=== PATIENT | male | born 1975 | race American Indian/Alaskan Native ===

== ENCOUNTER 2017-07-10 13:10 | Emergency (ER) | payer OTHER ==
[2017-07-10 13:26] VITALS: O2SAT 98
[2017-07-10] MEDS ORDERED: Sodium Chloride 0.9% 1,000 ML IV ONE (13:46)
[2017-07-10] MEDS ORDERED: Alum-Mag Hydrox-Simethicone Susp (30 mL) PO STA (13:48)
--- NOTE | 2017-07-10 13:52 | C.PDOC ---
History Of Present Illness 41 y/o male presents to ED with complaints of abdominal pain with associated vomiting since yesterday. Patient also reports heart burn and denies fever, chills, diarrhea, urinary symptoms, back pain or any other complaints at this time. Time Seen by Provider: 07/10/17 13:33 Chief Complaint (Nursing): Abdominal Pain History Per: Patient History/Exam Limitations: no limitations Onset/Duration Of Symptoms: Days Current Symptoms Are (Timing): Still Present Location Of Pain/Discomfort: Diffuse Past Medical History Reviewed: Historical Data, Nursing Documentation, Vital Signs Vital Signs: Last Vital Signs Temp 98.6 F 07/10/17 15:13 Pulse 80 07/10/17 15:13 Resp 18 07/10/17 15:13 BP 95/58 L 07/10/17 15:13 Pulse Ox 98 07/10/17 15:13 - Medical History PMH: Asthma, Back Problems, Bronchitis Surgical History: No Surg Hx - [facility] Procedures APPLICATION OF SPLINT (12/04/14) TETANUS TOXOID ADMINIST (01/24/14) Family History: States: No Known Family Hx - Social History Hx Tobacco Use: Yes Hx Alcohol Use: No Hx Substance Use: Yes - Immunization History Hx Tetanus Toxoid Vaccination: Yes (01/24/14) Hx Influenza Vaccination: No Hx Pneumococcal Vaccination: No Review Of Systems Except As Marked, All Systems Reviewed And Found Negative. Constitutional: Negative for: Fever, Chills Gastrointestinal: Positive for: Vomiting, Abdominal Pain. Negative for: Nausea , Diarrhea, Constipation Genitourinary: Negative for: Dysuria, Frequency, Hematuria Musculoskeletal: Negative for: Back Pain Skin: Negative for: Rash Physical Exam - Physical Exam Appears: Well, Non-toxic, No Acute Distress Skin: Normal Color, Warm, Dry, No Rash Head: Atraumatic, Normacephalic Eye(s): bilateral: Normal Inspection Oral Mucosa: Moist Neck: Normal ROM, Supple Chest: Symmetrical Cardiovascular: Rhythm Regular, No Murmur Respiratory: Normal Breath Sounds, No Rales, No Rhonchi, No Wheezing Gastrointestinal/Abdominal: Soft, No Tenderness, No Guarding, No Rebound Extremity: Normal ROM, No Pedal Edema, Capillary Refill (<2 seconds) Neurological/Psych: Oriented x3 ED Course And Treatment - Laboratory Results Result Diagrams: 07/10/17 13:50 07/10/17 14:15 Lab Interpretation: Normal ECG: Interpreted By Me ECG Rhythm: Sinus Rhythm ECG Interpretation: No Acute Changes Rate From EC O2 Sat by Pulse Oximetry: 98 (RA) Pulse Ox Interpretation: Normal Progress Note: Treated with IVF NSS, zofran and maalox. On re-evaluation abdomen soft non-tender Reassessment Condition: Improved Medical Decision Making Medical Decision Making: Plan: * labs * Pepcid * zofran * IV fluids * * On re-evaluation abdomen soft * feeling better * Patient requesting a rx for pain medication for chronic back pain * * Patient was instructed to take OTC for pain * * Ambulating with steady gait Disposition Counseled Patient/Family Regarding: Studies Performed, Diagnosis, Need For Followup, Rx Given - Disposition Referrals: Omaira Ramírez MD [Staff Provider] - Disposition: HOME/ ROUTINE Disposition Time: 15:00 Condition: STABLE Additional Instructions: Follow up with PMD for further evaluation Prescriptions: Famotidine [Pepcid AC] 20 mg PO BID #10 tab Famotidine/Ca Carb/Mag Hydrox [Pepcid Complete Tablet Chew] 1 each PO BID #10 tab.chew Instructions: Gastritis (ED) Forms: [employer] (Cook Islander) - POA Present On Arrival: None - Clinical Impression Clinical Impression: Vomiting, Gastritis - PA / SPECIAL EDUCATION BUS DRIVER / Resident Statement MD/DO has reviewed & agrees with the documentation as recorded. - Scribe Statement The provider has reviewed the documentation as recorded by the Scribtisha Tamayo All medical record entries made by the Janaeibtisha were at my direction and personally dictated by me. I have reviewed the chart and agree that the record accurately reflects my personal performance of the history, physical exam, medical decision making, and the department course for this patient. I have also personally directed, reviewed, and agree with the discharge instructions and disposition.
[2017-07-10] MEDS ORDERED: Sodium Chloride 0.9% 250 ML IV ONE (13:56)
[2017-07-10 13:57] LABS: BASO # 0.1 K/uL (0.0-0.2); BASO % 1.1 % (0.0-2.0); EOS # 0.3 K/uL (0.0-0.7); EOS % 4.9 % (0.0-4.0); HEMATOCRIT 42.5 % (35.0-51.0); LYMPH # 2.3 K/uL (1.0-4.3); LYMPH % 37.2 % (20.0-40.0); MEAN CELL VOLUME 94.9 fL (80.0-94.0); MEAN CORPUSCULAR HEMOGLOBIN 32.6 pg (27.0-31.0); MEAN CORPUSCULAR HGB CONC 34.4 g/dL (33.0-37.0); MEAN PLATELET VOLUME 8.4 fL (7.2-11.7); MONO # 0.5 K/uL (0.0-0.8); MONO % 8.3 % (0.0-10.0); NRBC % 0.1 % (0.0-2.0); RED CELL DISTRIBUTION WIDTH 14.4 % (11.5-14.5); WHITE BLOOD COUNT 6.3 K/uL (4.8-10.8)
[2017-07-10] MEDS ORDERED: Alum-Mag Hydrox-Simethicone Susp (30 mL) ONE (14:03)
[2017-07-10 14:16] LABS: RBC URINE < 1 /hpf (0-3); URINE BILIRUBIN NEGATIVE (NEGATIVE); URINE BLOOD NEGATIVE (NEGATIVE); URINE COLOR Yellow (YELLOW); URINE GLUCOSE (UA) NORMAL (Normal); URINE KETONE NEGATIVE (NEGATIVE); URINE LEUKOCYTE ESTERASE NEG Leu/uL (Negative); URINE PROTEIN NEGATIVE (NEGATIVE); URINE UROBILINOGEN NORMAL mg/dL (0.2-1.0); WBC URINE < 1 /hpf (0-5)
[2017-07-10 14:35] LABS: CHLORIDE 110 mmol/L (98-107); SODIUM 142 mmol/L (132-148)
[2017-07-10 14:37] LABS: GFR AFRICAN-AMERICAN > 60
[2017-07-10 14:38] LABS: ALB/GLOB RATIO 1.2 (1.0-2.1); ALKALINE PHOSPHATASE 64 U/L (38-126); ALT/SGPT 40 U/L (21-72); AST/SGOT 21 U/L (17-59); BILIRUBIN,TOTAL 0.5 mg/dL (0.2-1.3); BLOOD UREA NITROGEN 11 mg/dL (9-20); CALCIUM 8.7 mg/dl (8.6-10.4); CARBON DIOXIDE 24 mmol/L (22-30); GLUCOSE,RANDOM 95 mg/dL (75-110); TOTAL PROTEIN 6.7 g/dL (6.3-8.3)
[2017-07-10 15:14] VITALS: BP 95/58; PULSE 80; RESP 18; TEMP 98.6
== END 2017-07-10 15:26 | disposition home or self-care (01) ==
LOC: C.ER 13:10
DX: K29.70 Gastritis, unspecified, without bleeding (principal); R11.10 Vomiting, unspecified
CPT/HCPCS: 80053; 81001; 83690; 85025; 96361; 96374; 96375; 99285; J2405; J7040

== ENCOUNTER 2017-07-25 20:08 | Emergency (ER) | payer SELFPAY ==
[2017-07-25 21:07] LABS: BASO # 0.1 K/uL (0.0-0.2); BASO % 0.9 % (0.0-2.0); EOS # 0.2 K/uL (0.0-0.7); EOS % 2.4 % (0.0-4.0); HEMATOCRIT 41.4 % (35.0-51.0); LYMPH # 3.1 K/uL (1.0-4.3); LYMPH % 34.7 % (20.0-40.0); MEAN CELL VOLUME 93.8 fL (80.0-94.0); MEAN CORPUSCULAR HEMOGLOBIN 32.8 pg (27.0-31.0); MEAN PLATELET VOLUME 8.7 fL (7.2-11.7); MONO # 0.8 K/uL (0.0-0.8); MONO % 8.4 % (0.0-10.0); NRBC % 0.1 % (0.0-2.0); RED CELL DISTRIBUTION WIDTH 14.2 % (11.5-14.5)
[2017-07-25 21:14] LABS: CHLORIDE 101 mmol/L (98-107); POTASSIUM 3.7 mmol/L (3.6-5.2); SODIUM 135 mmol/L (132-148)
[2017-07-25 21:16] LABS: BILIRUBIN,TOTAL 0.6 mg/dL (0.2-1.3); GFR AFRICAN-AMERICAN > 60
[2017-07-25 21:17] LABS: ALB/GLOB RATIO 1.1 (1.0-2.1); ALKALINE PHOSPHATASE 68 U/L (38-126); ALT/SGPT 40 U/L (21-72); AST/SGOT 22 U/L (17-59); BLOOD UREA NITROGEN 15 mg/dL (9-20); CALCIUM 9.1 mg/dl (8.6-10.4); CARBON DIOXIDE 23 mmol/L (22-30); GLUCOSE,RANDOM 81 mg/dL (75-110); TOTAL PROTEIN 7.8 g/dL (6.3-8.3)
[2017-07-25 22:33] VITALS: BP 127/70; PULSE 69; RESP 20; TEMP 98; O2SAT 100
--- NOTE | 2017-07-26 01:05 | C.PDOC ---
History Of Present Illness 41 year old male who presents to the ER with a complaint of substernal, nonradiating chest pain since this afternoon. Patient states he had a cardiac work up done last week but results are not known to patient. Denies SOB, cough, abdominal pain, or diaphoresis. Time Seen by Provider: 07/25/17 20:53 Chief Complaint (Nursing): Chest Pain History Per: Patient History/Exam Limitations: no limitations Onset/Duration Of Symptoms: Hrs Current Symptoms Are (Timing): Still Present Associated Symptoms: denies: Nausea, Dyspnea, Diaphoresis, Syncope Modifying Factors: None Exacerbating Factors: None Alleviating Factors: None Recent travel outside of the [place]: No Past Medical History Reviewed: Historical Data, Nursing Documentation, Vital Signs Vital Signs: Last Vital Signs Temp 98 F 07/25/17 22:32 Pulse 69 07/25/17 22:32 Resp 20 07/25/17 22:32 BP 127/70 07/25/17 22:32 Pulse Ox 100 07/26/17 01:09 - Medical History PMH: Asthma, Back Problems, Bronchitis Surgical History: No Surg Hx - [facility] Procedures APPLICATION OF SPLINT (12/04/14) TETANUS TOXOID ADMINIST (01/24/14) Family History: States: Unknown Family Hx - Social History Hx Tobacco Use: Yes Hx Alcohol Use: No Hx Substance Use: Yes - Immunization History Hx Tetanus Toxoid Vaccination: Yes (01/24/14) Hx Influenza Vaccination: No Hx Pneumococcal Vaccination: No Review Of Systems Constitutional: Negative for: Fever, Chills, Sweats Cardiovascular: Positive for: Chest Pain Respiratory: Negative for: Cough, Shortness of Breath Gastrointestinal: Negative for: Nausea, Vomiting, Abdominal Pain Physical Exam - Physical Exam Appears: Non-toxic, No Acute Distress Skin: Normal Color, Warm, Dry Head: Atraumatic, Normacephalic Eye(s): bilateral: Normal Inspection, EOMI Oral Mucosa: Moist Neck: Normal, Supple Chest: Symmetrical, No Tenderness Cardiovascular: Rhythm Regular, No Murmur Respiratory: Normal Breath Sounds, No Rales, No Rhonchi, No Wheezing Gastrointestinal/Abdominal: Soft, No Tenderness Extremity: Normal ROM (x4) Neurological/Psych: Oriented x3, Normal Speech, Normal Cognition ED Course And Treatment - Laboratory Results Result Diagrams: 07/25/17 21:03 07/25/17 21:03 O2 Sat by Pulse Oximetry: 100 (Room air) Pulse Ox Interpretation: Normal Progress Note: EKG, blood work, and CXR ordered. Spoke with Dr. Ramírez who cleared the patient for discharge. Patient discharged home with instructions to follow up with Dr. Ramírez as scheduled. Disposition - Disposition Referrals: Omaira Ramírez MD [Primary Care Provider] - Disposition: HOME/ ROUTINE Disposition Time: 22:25 Condition: IMPROVED Additional Instructions: Thank you for letting us take care of you today. Your provider was Dr. Hernandez. You were treated for non-cardiac chest pain. The emergency medical care you received today was directed at your acute symptoms. If you were prescribed any medication, please fill it and take as directed. It may take several days for your symptoms to resolve. Return to the Emergency Department if your symptoms worsen, do not improve, or if you have any other problems. Please contact your doctor or call one of the physicians/clinics you have been referred to that are listed on the Patient Visit Information form that is included in your discharge packet. Bring any paperwork you were given at discharge with you along with any medications you are taking to your follow up visit. Our treatment cannot replace ongoing medical care by a primary care provider (PCP) outside of the emergency department. Thank you for allowing the [facility] team to be part of your care today. Follow up with Dr. Ramírez as scheduled for further management. Instructions: Noncardiac Chest Pain (ED) Forms: [employer] (Uzbek) - Clinical Impression Clinical Impression: Non-cardiac chest pain - Scribe Statement The provider has reviewed the documentation as recorded by the Scribtisha Severino All medical record entries made by the Scribe were at my direction and personally dictated by me. I have reviewed the chart and agree that the record accurately reflects my personal performance of the history, physical exam, medical decision making, and the department course for this patient. I have also personally directed, reviewed, and agree with the discharge instructions and disposition.
--- NOTE | 2017-07-26 08:21 | RAD ---
PROCEDURE: CHEST RADIOGRAPH, 1 VIEW HISTORY: chest pain COMPARISON: Chest radiographs 04/01/2016. FINDINGS: LUNGS: Clear. PLEURA: No pneumothorax or pleural fluid seen. CARDIOVASCULAR: Cardiac silhouette appears likely technically magnified though an limited element of increasing cardiac volume is not excluded. Mild pulmonary venous congestion is questioned. OSSEOUS STRUCTURES: No significant abnormalities. VISUALIZED UPPER ABDOMEN: Normal. OTHER FINDINGS: None. IMPRESSION: No acute interval pulmonary disease. Mild pulmonary venous congestion pattern in question. Clinically correlate further.
== END 2017-07-25 22:33 | disposition home or self-care (01) ==
LOC: C.ER 20:08 → SUPCPDRO 20:08 → C.ER 22:33
DX: R07.89 Other chest pain (principal)
CPT/HCPCS: 71010; 80053; 84484; 85025; 99284; G0480

== ENCOUNTER 2017-11-18 00:34 | Emergency (ER) | payer MEDICAID, OTHER ==
[2017-11-18 00:49] VITALS: BP 120/71; PULSE 89; RESP 20; TEMP 99.7; O2SAT 98
--- NOTE | 2017-11-18 01:26 | C.PDOC ---
History Of Present Illness 41 year old male presents to the ER with a complaint of body aches, cough, chest congestions, and chills for the past 3 days. Patient also reports some discoloration to his left great toe nail. Denies fever or recent travel. Time Seen by Provider: 11/18/17 01:18 Chief Complaint (Nursing): Flu-like Symptoms History Per: Patient History/Exam Limitations: no limitations Onset/Duration Of Symptoms: Waxing/Waning Location Of Pain: None Sick Contacts (Context): None Associated Symptoms: Chills, Cough, Myalgias, Other (Chest congestion). denies : Fever Ear Symptoms: Bilateral: None Recent travel outside of the [place]: No Past Medical History Reviewed: Historical Data, Nursing Documentation, Vital Signs Vital Signs: Last Vital Signs Temp 99.7 F H 11/18/17 00:45 Pulse 89 11/18/17 00:45 Resp 20 11/18/17 00:45 BP 120/71 11/18/17 00:45 Pulse Ox 98 11/18/17 01:29 - Medical History PMH: Asthma, Back Problems, Bronchitis - [facility] Procedures APPLICATION OF SPLINT (12/04/14) TETANUS TOXOID ADMINIST (01/24/14) Family History: States: Unknown Family Hx - Social History Hx Tobacco Use: Yes Hx Alcohol Use: No Hx Substance Use: Yes - Immunization History Hx Tetanus Toxoid Vaccination: Yes (01/24/14) Hx Influenza Vaccination: No Hx Pneumococcal Vaccination: No Review Of Systems Constitutional: Positive for: Chills. Negative for: Fever Respiratory: Positive for: Cough, Other (Chest congestion) Musculoskeletal: Positive for: Other (Body aches) Physical Exam - Physical Exam Appears: Non-toxic, No Acute Distress Skin: Normal Color, Warm, Dry Head: Atraumatic, Normacephalic Eye(s): bilateral: Normal Inspection Ear(s): Bilateral: Normal Nose: Normal Oral Mucosa: Moist Throat: Normal, No Erythema, No Exudate Neck: Normal, Supple Chest: Symmetrical, No Tenderness Cardiovascular: Rhythm Regular Respiratory: Normal Breath Sounds, No Rales, No Rhonchi, No Wheezing Extremity: Normal ROM (x4), No Tenderness, Capillary Refill (<2 seconds), No Deformity, Other (Left great toe appears ingrown. No sign of erythema or infection.) Pulses: Left Dorsalis Pedis: Normal, Right Dorsalis Pedis: Normal Neurological/Psych: Oriented x3, Normal Speech, Normal Motor, Normal Sensation ED Course And Treatment O2 Sat by Pulse Oximetry: 98 (Room air) Pulse Ox Interpretation: Normal Progress Note: Motrin administered for pain. Patient is resting comfortably in the ER in no distress, will discharge home with Rx and instructions to follow up with clinic for further evaluation or return if symptoms worsen. Disposition Counseled Patient/Family Regarding: Diagnosis, Need For Followup, Rx Given - Disposition Referrals: [facility] [Outside] Podiat[facility] [Outside] Disposition: HOME/ ROUTINE Disposition Time: 01:24 Condition: STABLE Additional Instructions: Please follow up with PMD or in clinic Return to ER if worse Prescriptions: Benzonatate [Tessalon Perles] 100 mg PO TID #20 sgl Cetirizine HCl [Zyrtec] 10 mg PO DAILY #14 capsule Ibuprofen [Motrin] 600 mg PO Q6H #20 tab Instructions: Upper Respiratory Infection (ED) Forms: [employer] (Serbian) - Clinical Impression Clinical Impression: Influenza-like illness - PA / AGILE QA TESTER / Resident Statement MD/DO has reviewed & agrees with the documentation as recorded. - Scribe Statement The provider has reviewed the documentation as recorded by the Scribtisha Severino All medical record entries made by the Janaeibtisha were at my direction and personally dictated by me. I have reviewed the chart and agree that the record accurately reflects my personal performance of the history, physical exam, medical decision making, and the department course for this patient. I have also personally directed, reviewed, and agree with the discharge instructions and disposition.
== END 2017-11-18 01:39 | disposition home or self-care (01) ==
LOC: C.ER 00:34
DX: J11.1 Influenza due to unidentified influenza virus with other respiratory manifestations (principal); Z87.891 Personal history of nicotine dependence

== ENCOUNTER 2017-12-05 21:31 | Emergency (ER) | payer MEDICAID ==
[2017-12-05 22:16] VITALS: RESP 16
[2017-12-05] MEDS ORDERED: Sodium Chloride 0.9% 1,000 ML IV ONE (22:56)
--- NOTE | 2017-12-06 00:18 | C.PDOC ---
History Of Present Illness 41 year old male presents to the ED c/o cough and congestion for the past 3 days. Patient reports he saw his PMD who prescribed him cipro that has not helped relief the symptoms. Patient also states he has a subjective fever and a dry cough as well. Patient denies CP, SOB, nausea, vomit, diarrhea. Chief Complaint (Nursing): Flu-like Symptoms History Per: Patient History/Exam Limitations: no limitations Onset/Duration Of Symptoms: Days Current Symptoms Are (Timing): Still Present Location Of Pain: Throat Sick Contacts (Context): None Associated Symptoms: Fever, Cough, Nasal Congestion Recent travel outside of the [place]: No Additional History Per: Patient Past Medical History Reviewed: Historical Data, Nursing Documentation, Vital Signs Vital Signs: Last Vital Signs Temp 98.4 F 12/06/17 00:24 Pulse 82 12/06/17 00:24 Resp 16 12/06/17 00:24 BP 102/65 12/06/17 00:24 Pulse Ox 99 12/06/17 00:30 - Medical History PMH: Asthma, Back Problems, Bronchitis Denies: Chronic Kidney Disease Surgical History: No Surg Hx - [facility] Procedures APPLICATION OF SPLINT (12/04/14) TETANUS TOXOID ADMINIST (01/24/14) Family History: States: Unknown Family Hx - Social History Hx Tobacco Use: Yes Hx Alcohol Use: No Hx Substance Use: Yes - Immunization History Hx Tetanus Toxoid Vaccination: Yes (01/24/14) Hx Influenza Vaccination: No Hx Pneumococcal Vaccination: No Review Of Systems Constitutional: Positive for: Fever. Negative for: Chills ENT: Positive for: Nose Congestion Cardiovascular: Negative for: Chest Pain Respiratory: Positive for: Cough. Negative for: Shortness of Breath Gastrointestinal: Negative for: Nausea, Vomiting, Abdominal Pain Skin: Negative for: Rash Neurological: Negative for: Weakness, Numbness, Headache Physical Exam - Physical Exam Appears: Non-toxic, No Acute Distress Skin: Normal Color, Warm, Dry Head: Atraumatic, Normacephalic, Tenderness (Maxillary sinus ) Eye(s): bilateral: Normal Inspection Nose: No Discharge, No Deformity Oral Mucosa: Moist Neck: Normal ROM, Supple Chest: Symmetrical Cardiovascular: Rhythm Regular, No Murmur Respiratory: Normal Breath Sounds, No Rales, No Rhonchi, No Wheezing Gastrointestinal/Abdominal: Soft, No Tenderness, No Guarding, No Rebound Extremity: Normal ROM, No Pedal Edema, No Deformity, No Swelling Neurological/Psych: Oriented x3, Normal Speech, Normal Cognition Gait: Steady ED Course And Treatment O2 Sat by Pulse Oximetry: 99 (On RA) Pulse Ox Interpretation: Normal Medical Decision Making Medical Decision Making: Impression: cough, fever, congestion Plan: * CXR * IV fluids Disposition - [facility] - Disposition: HOME/ ROUTINE Disposition Time: 23:30 Condition: IMPROVED Additional Instructions: Thank you for letting us take care of you today. The emergency medical care you received today was directed at your acute symptoms. If you were prescribed any medication, please fill it and take as directed. It may take several days for your symptoms to resolve. Return to the Emergency Department if your symptoms worsen, do not improve, or if you have any other problems. Please contact your doctor or call one of the physicians/clinics you have been referred to that are listed on the Patient Visit Information form that is included in your discharge packet. Bring any paperwork you were given at discharge with you along with any medications you are taking to your follow up visit. Our treatment cannot replace ongoing medical care by a primary care provider (PCP) outside of the emergency department. Thank you for allowing the [facility] team to be part of your care today. Follow up with your doctor in 2-3 days for re-evaluation and further management. Prescriptions: Amoxicillin/Clavulanate [Augmentin 875 MG-125 MG] 1 tab PO BID #14 tab Cetirizine HCl [Zyrtec] 10 mg PO DAILY #20 capsule Instructions: Sinusitis in Adults Forms: [employer] (Divehi), Work Excuse - Clinical Impression Clinical Impression: Sinusitis - Scribe Statement The provider has reviewed the documentation as recorded by the Scribe Shane Parry All medical record entries made by the Scribe were at my direction and personally dictated by me. I have reviewed the chart and agree that the record accurately reflects my personal performance of the history, physical exam, medical decision making, and the department course for this patient. I have also personally directed, reviewed, and agree with the discharge instructions and disposition.
[2017-12-06 00:25] VITALS: BP 102/65; PULSE 82; TEMP 98.4
[2017-12-06 00:28] VITALS: O2SAT 99
--- NOTE | 2017-12-06 08:33 | RAD ---
HISTORY: r/o infiltrate COMPARISON: Chest x-ray performed 07/25/17 TECHNIQUE: Chest PA and lateral FINDINGS: LUNGS: No focal consolidation. Please note that chest x-ray has limited sensitivity for the detection of pulmonary masses. PLEURA: No significant pleural effusion identified. No definite pneumothorax . CARDIOVASCULAR: Heart size appears within normal limits. OSSEOUS STRUCTURES: Degenerative changes. VISUALIZED UPPER ABDOMEN: Unremarkable. OTHER FINDINGS: None. IMPRESSION: No focal consolidation identified
== END 2017-12-06 00:25 | disposition home or self-care (01) ==
LOC: C.ER 21:31
DX: J32.9 Chronic sinusitis, unspecified (principal)
CPT/HCPCS: 71046; 96360; 99283; J7040

== ENCOUNTER 2018-01-08 21:32 | Emergency (ER) | payer MEDICAID ==
[2018-01-08 21:47] VITALS: BP 164/85; PULSE 89; RESP 20; TEMP 98.2; O2SAT 100
--- NOTE | 2018-01-08 22:51 | C.PDOC ---
History Of Present Illness 42 year old male presents to the ED c/o cough, nasal congestion, body aches, generalized malaise for the past week. Patient was seen by his PMD 2 days ago was was prescribed some medications that patient has not filled yet. Patient is also c/o constipation for the past 3 days. Patient denies fever, chills, nausea , vomit, diarrhea, abdominal pain, recent travel, sick contacts. Time Seen by Provider: 01/08/18 22:01 Chief Complaint (Nursing): Cough, Cold, Congestion History Per: Patient History/Exam Limitations: no limitations Onset/Duration Of Symptoms: Days Current Symptoms Are (Timing): Still Present Location Of Pain: Diffuse Myalgias Sick Contacts (Context): None Associated Symptoms: Cough, Myalgias, Nasal Congestion Recent travel outside of the [place]: No Additional History Per: Patient Past Medical History Reviewed: Historical Data, Nursing Documentation, Vital Signs Vital Signs: Last Vital Signs Temp 98.2 F 01/08/18 21:43 Pulse 89 01/08/18 21:43 Resp 20 01/08/18 21:43 BP 164/85 H 01/08/18 21:43 Pulse Ox 100 01/08/18 22:51 - Medical History PMH: Asthma, Back Problems, Bronchitis Denies: Chronic Kidney Disease Surgical History: No Surg Hx - [facility] Procedures APPLICATION OF SPLINT (12/04/14) TETANUS TOXOID ADMINIST (01/24/14) Family History: States: Unknown Family Hx - Social History Hx Tobacco Use: Yes Hx Alcohol Use: Yes Hx Substance Use: Yes - Immunization History Hx Tetanus Toxoid Vaccination: Yes (01/24/14) Hx Influenza Vaccination: No Hx Pneumococcal Vaccination: No Review Of Systems Constitutional: Positive for: Malaise. Negative for: Fever, Chills ENT: Positive for: Nose Congestion Cardiovascular: Negative for: Chest Pain, Palpitations Respiratory: Positive for: Cough. Negative for: Shortness of Breath, Sputum Gastrointestinal: Negative for: Nausea, Vomiting, Abdominal Pain Skin: Negative for: Rash Neurological: Negative for: Weakness, Numbness Physical Exam - Physical Exam Appears: Non-toxic, No Acute Distress Skin: Normal Color, Warm, Dry Head: Atraumatic, Normacephalic Eye(s): bilateral: Normal Inspection Ear(s): Bilateral: Normal Nose: No Discharge Oral Mucosa: Moist Throat: Normal, No Erythema, No Exudate Neck: Normal ROM, Supple Respiratory: Normal Breath Sounds, No Rales, No Rhonchi, No Wheezing Gastrointestinal/Abdominal: Soft, No Tenderness, No Guarding, No Rebound Extremity: Normal ROM, No Tenderness, No Swelling Neurological/Psych: Oriented x3 Gait: Steady ED Course And Treatment O2 Sat by Pulse Oximetry: 100 (On RA) Pulse Ox Interpretation: Normal Progress Note: Plan: - Toradol 30 mg IM. Patient states feeling better after medications. Patient is afebrile in the ED in no acute distress and stable for D /C. Patient was advised to folllow up with PMD in 1-2 days. Disposition Counseled Patient/Family Regarding: Diagnosis, Need For Followup, Rx Given - Disposition Disposition: HOME/ ROUTINE Disposition Time: 22:44 Condition: STABLE Additional Instructions: Please follow up with orthopedic clinic Take meds as directed Return to ER if worse Prescriptions: Benzonatate [Tessalon Perles] 100 mg PO TID #20 sgl Cetirizine HCl [Zyrtec] 10 mg PO DAILY #20 capsule Ibuprofen [Motrin Tab] 800 mg PO QID #20 tab Polyethylene Glycol 3350 [Miralax] 17 gm PO DAILY #1 bottle Instructions: Upper Respiratory Infection (ED) Forms: [employer] (Liberian) - Clinical Impression Clinical Impression: Upper respiratory infection, Constipation - PA / SIMULATION ANALYST / Resident Statement MD/DO has reviewed & agrees with the documentation as recorded. - Scribe Statement The provider has reviewed the documentation as recorded by the Scribe Shane Parry All medical record entries made by the Scribe were at my direction and personally dictated by me. I have reviewed the chart and agree that the record accurately reflects my personal performance of the history, physical exam, medical decision making, and the department course for this patient. I have also personally directed, reviewed, and agree with the discharge instructions and disposition.
== END 2018-01-08 22:55 | disposition home or self-care (01) ==
LOC: C.ER 21:32
DX: J06.9 Acute upper respiratory infection, unspecified (principal); K59.00 Constipation, unspecified
CPT/HCPCS: 96372; 99283; J1885

== ENCOUNTER 2018-02-18 03:56 | Emergency (ER) | payer MEDICAID ==
[2018-02-18 04:11] VITALS: RESP 20
--- NOTE | 2018-02-18 04:32 | C.PDOC ---
Time Seen by Provider: 02/18/18 04:17 Chief Complaint (Nursing): Back Pain Past Medical History Vital Signs: Last Vital Signs Temp 98.2 F 02/18/18 04:02 Pulse 78 02/18/18 04:02 Resp 20 02/18/18 04:02 BP 131/78 02/18/18 04:02 Pulse Ox 98 02/18/18 04:02 - Medical History PMH: Asthma, Back Problems, Bronchitis Denies: Chronic Kidney Disease - [facility] Procedures APPLICATION OF SPLINT (12/04/14) TETANUS TOXOID ADMINIST (01/24/14) Family History: States: Unknown Family Hx - Social History Hx Tobacco Use: Yes Hx Alcohol Use: Yes Hx Substance Use: Yes - Immunization History Hx Tetanus Toxoid Vaccination: Yes (01/24/14) Hx Influenza Vaccination: No Hx Pneumococcal Vaccination: No ED Course And Treatment O2 Sat by Pulse Oximetry: 98 Disposition - Disposition Disposition: HOME/ ROUTINE Disposition Time: 04:31 Condition: STABLE Additional Instructions: Follow up with PMD in 1-2 days. Return to ER if symptoms persist or worsen. Prescriptions: Cyclobenzaprine [Cyclobenzaprine HCl] 10 mg PO TID #20 tab Naproxen [Naprosyn] 1 tab PO BID PRN #20 tab PRN Reason: Pain Instructions: Low Back Pain (DC)
--- NOTE | 2018-02-18 04:34 | C.PDOC ---
History Of Present Illness 42 year old male with a Hx of chronic back pain presents to the ER with a complaint of lower back pain. Patient reports he took oxycodone CERTIFIED [employer]. Pt notes this feel the same as his usual back pain exacerbation, no new symptoms. Denies trauma, abdominal pain, fever, weakness, numbness, dysuria, hematuria, or incontinence. Time Seen by Provider: 02/18/18 04:17 Chief Complaint (Nursing): Back Pain History Per: Patient History/Exam Limitations: no limitations Onset/Duration Of Symptoms: Days Current Symptoms Are (Timing): Still Present Severity: None Previous Symptoms: Back Pain Associated Symptoms: None Exacerbating Factor(s): Nothing Recent travel outside of the [place]: No Past Medical History Reviewed: Historical Data, Nursing Documentation, Vital Signs Vital Signs: Last Vital Signs Temp 98 F 02/18/18 05:00 Pulse 81 02/18/18 05:00 Resp 20 02/18/18 05:00 BP 136/71 02/18/18 05:00 Pulse Ox 99 02/18/18 05:00 - Medical History PMH: Asthma, Back Problems, Bronchitis - [facility] Procedures APPLICATION OF SPLINT (12/04/14) TETANUS TOXOID ADMINIST (01/24/14) Family History: States: Unknown Family Hx - Social History Hx Tobacco Use: Yes Hx Alcohol Use: Yes Hx Substance Use: Yes - Immunization History Hx Tetanus Toxoid Vaccination: Yes (01/24/14) Hx Influenza Vaccination: No Hx Pneumococcal Vaccination: No Review Of Systems Genitourinary: Negative for: Dysuria, Incontinence, Hematuria Musculoskeletal: Positive for: Back Pain Neurological: Negative for: Weakness, Numbness Physical Exam - Physical Exam Appears: Non-toxic, No Acute Distress (pt is sleeping) Skin: Normal Color, Warm, Dry Head: Atraumatic, Normacephalic Eye(s): bilateral: Normal Inspection, EOMI Oral Mucosa: Moist Neck: Normal ROM, No Midline Cervical Tenderness, No Paracervical Tenderness, Supple Chest: Symmetrical Cardiovascular: Rhythm Regular Respiratory: Normal Breath Sounds, No Accessory Muscle Use Gastrointestinal/Abdominal: Soft, No Tenderness Back: No CVA Tenderness, No Vertebral Tenderness, No Paraspinal Tenderness Extremity: Normal ROM (x4) Extremity: Bilateral: Normal Color And Temperature Neurological/Psych: Oriented x3, Normal Speech, Normal Motor, Normal Sensation Gait: Steady ED Course And Treatment O2 Sat by Pulse Oximetry: 98 (Room air) Pulse Ox Interpretation: Normal Progress Note: [place], patient received 15 percocet on 02/06/18 and another 15 percocet on 02/11/18. On re-evaluation, patient is resting comfortably in the ER in no acute distress, he is able to ambulate without any difficulty. No fever, no bony tenderness, no numbness, no weakness, or abdominal pain. Pt will discharge home with instructions to follow up with PMD in 1-2 days or return to ER if symtpoms persist or worsen. Disposition - Disposition Disposition: HOME/ ROUTINE Disposition Time: :31 Condition: STABLE Additional Instructions: Follow up with PMD in 1-2 days. Return to ER if symptoms persist or worsen. 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 - Scribe Statement The provider has reviewed the documentation as recorded by the Scribe Julio Cesar Severino All medical record entries made by the Janaeibtisha were at my direction and personally dictated by me. I have reviewed the chart and agree that the record accurately reflects my personal performance of the history, physical exam, medical decision making, and the department course for this patient. I have also personally directed, reviewed, and agree with the discharge instructions and disposition.
[2018-02-18 05:01] VITALS: BP 136/71; PULSE 81; TEMP 98
[2018-02-21 14:07] VITALS: O2SAT 98
== END 2018-02-18 05:06 | disposition home or self-care (01) ==
LOC: C.ER 03:56
DX: S39.012A Strain of muscle, fascia and tendon of lower back, initial encounter (principal); X58.XXXA Exposure to other specified factors, initial encounter
CPT/HCPCS: 96372; 99283; J1885

== ENCOUNTER 2018-03-06 01:52 | Emergency (ER) | payer MEDICAID ==
[2018-03-06 02:16] VITALS: RESP 20
[2018-03-06 04:24] LABS: URINE BILIRUBIN NEGATIVE (NEGATIVE); URINE BLOOD NEGATIVE (NEGATIVE); URINE CLARITY Clear (Clear); URINE COLOR Yellow (YELLOW); URINE GLUCOSE (UA) NORMAL (Normal); URINE LEUKOCYTE ESTERASE NEG Leu/uL (Negative); URINE PROTEIN NEGATIVE (NEGATIVE)
--- NOTE | 2018-03-06 04:36 | C.PDOC ---
History Of Present Illness 42 year old male presents to the ED for evaluation of elevated blood pressure and lower back pain which began around 2-3 days ago. Patient also states he has been feeling tired and states he is under the influence of drugs. He denies fever, chills, throat pain, cough, chest pain, trouble using the bathroom or painful urination. Time Seen by Provider: 03/06/18 02:32 Chief Complaint (Nursing): High Blood Pressure History Per: Patient History/Exam Limitations: no limitations Onset/Duration Of Symptoms: Days (2-3) Current Symptoms Are (Timing): Still Present Associated Symptoms: denies: Chest Pain Additional History Per: Patient Past Medical History Reviewed: Historical Data, Nursing Documentation, Vital Signs Vital Signs: Last Vital Signs Temp 98 F 03/06/18 05:30 Pulse 88 03/06/18 05:30 Resp 20 03/06/18 05:30 BP 138/70 03/06/18 05:30 Pulse Ox 96 03/06/18 05:54 - Medical History PMH: Asthma, Back Problems, Bronchitis Denies: Chronic Kidney Disease Surgical History: No Surg Hx - [facility] Procedures APPLICATION OF SPLINT (12/04/14) TETANUS TOXOID ADMINIST (01/24/14) Family History: States: Unknown Family Hx - Social History Hx Tobacco Use: Yes Hx Alcohol Use: Yes Hx Substance Use: Yes - Immunization History Hx Tetanus Toxoid Vaccination: No Hx Influenza Vaccination: No Hx Pneumococcal Vaccination: No Review Of Systems Constitutional: Positive for: Sweats, Weakness, Other (elevated blood pressure ) . Negative for: Fever, Chills ENT: Negative for: Throat Pain Cardiovascular: Negative for: Chest Pain Respiratory: Negative for: Cough Gastrointestinal: Positive for: Abdominal Pain Genitourinary: Negative for: Dysuria Musculoskeletal: Positive for: Back Pain (lower ) Physical Exam - Physical Exam Appears: Non-toxic, No Acute Distress Skin: Normal Color, Warm, Dry Head: Atraumatic, Normacephalic Eye(s): bilateral: Normal Inspection Oral Mucosa: Moist Neck: Normal ROM, Supple Chest: Symmetrical, No Deformity, No Tenderness Cardiovascular: Rhythm Regular, No Murmur Respiratory: Normal Breath Sounds, No Rales, No Rhonchi, No Wheezing Gastrointestinal/Abdominal: Soft, No Tenderness, No Guarding, No Rebound Back: Normal Inspection, No CVA Tenderness, No Vertebral Tenderness, No Paraspinal Tenderness Extremity: Normal ROM, Capillary Refill (less than 2 seconds ) Neurological/Psych: Oriented x3, Normal Speech, Normal Cognition, Normal Motor Gait: Steady ED Course And Treatment O2 Sat by Pulse Oximetry: 96 (on RA) Pulse Ox Interpretation: Normal Medical Decision Making Medical Decision Making: Progress: urinalysis ordered and reviewed. Patient is with family member who will take the patient home. On re-exam, the patient reports improvement of symptoms. Lungs are CTA, heart is RRR, abdomen is soft, non-tender and tolerating Po well. Ambulatory in the ED with steady gait. Patient was instructed to follow up with the medical doctor/clinic within 1-2 days. Return to the ED if worsened. Disposition - Disposition Referrals: Clinton IVERSON,Miguelina Jacobo MD [Medical Doctor] - Disposition: HOME/ ROUTINE Disposition Time: 04:35 Condition: GOOD Additional Instructions: follow up with the medical doctor/clinic within 1-2 days. Return to the ED if worsened. 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 - Scribe Statement The provider has reviewed the documentation as recorded by the Scribe (Maryam Jay) All medical record entries made by the Scribe were at my direction and personally dictated by me. I have reviewed the chart and agree that the record accurately reflects my personal performance of the history, physical exam, medical decision making, and the department course for this patient. I have also personally directed, reviewed, and agree with the discharge instructions and disposition.
[2018-03-06 05:47] VITALS: BP 138/70; PULSE 88; TEMP 98
[2018-03-06 05:54] VITALS: O2SAT 96
== END 2018-03-06 05:47 | disposition home or self-care (01) ==
LOC: C.ER 01:52
DX: F19.10 Other psychoactive substance abuse, uncomplicated (principal); Z72.0 Tobacco use